=== PATIENT | female | born 1955 | race Caucasian/White ===

== ENCOUNTER 2018-07-19 03:42 | Emergency (ER) | payer OTHER ==
[~2018-07-19] VITALS: Ht 157.5 cm; Wt 72.7 kg
[~2018-07-19 03:42] MED LIST: LISINOPRIL PO; METFORMIN PO
[2018-07-19 04:03] LABS: GLUCOSE,POINT OF CARE 141 MG/DL (70-110)
[2018-07-19] MEDS ORDERED: SIMV-259 PO (04:15)
[2018-07-19] MEDS ORDERED: CefTRIAXone SODIUM 1 GM in DEXTROSE 5%-WATER 10 ML IV ONE (04:30)
[2018-07-19] MEDS ORDERED: SODIUM CHLORIDE 0.9% 1,000 ML IV ONE (04:30)
[2018-07-19 04:37] LABS: BASOPHILS % (AUTO) 0.8 % (0.0-2.0); EOSINOPHILS % (AUTO) 2.3 % (1.0-6.0); HEMATOCRIT 40.1 % (36-46); HEMOGLOBIN 13.8 g/dL (12.0-16.0); LYMPHOCYTES # (AUTO) 3.2 K/uL (1.0-4.8); LYMPHOCYTES % (AUTO) 22.4 % (22.0-44.0); MEAN CORPUSCULAR HEMOGLOBIN 30.2 pg (26.0-34.0); MEAN CORPUSCULAR HGB CONC 34.5 G/dL (31.0-37.0); MEAN CORPUSCULAR VOLUME 88 fL (80-100); MONOCYTES # (AUTO) 1.1 K/uL (0.1-1.0); MONOCYTES % (AUTO) 8.1 % (2.0-9.0); NEUTROPHILS # (AUTO) 9.4 K/uL (1.8-7.7); NEUTROPHILS % (AUTO) 66.4 % (40.0-70.0); PLATELET COUNT (AUTO) 272 K/uL (150-450); RED BLOOD CELL COUNT(AUTO) 4.58 MIL/uL (4.00-5.20); RED CELL DISTRIBUTION WIDTH 13.9 % (11.5-14.5)
[2018-07-19 04:44] LABS: CALCIUM, TOTAL 9.1 mg/dL (8.8-10.5); POTASSIUM 4.2 mmol/L (3.5-5.1)
[2018-07-19] MEDS ORDERED: KETOROLAC TROMETHAMINE 30 MG/ML VIAL IVP ONE (04:45)
[2018-07-19 04:50] LABS: ALBUMIN 3.6 g/dL (3.4-5.0); BILIRUBIN,TOTAL 0.3 mg/dL (0.1-1.0); TOTAL PROTEIN, SERUM 7.7 g/dL (6.4-8.2)
[2018-07-19] MEDS ORDERED: PHENAZOPYRIDINE HCL 100 MG TABLET PO ONE (05:00)
[2018-07-19 05:05] LABS: APPEARANCE,URINE TURBID (CLEAR); BILIRUBIN,URINE NEGATIVE (NEGATIVE); GLUCOSE, URINE (UA) NEGATIVE (NEGATIVE); KETONES,URINE NEGATIVE (NEGATIVE); LEUKOCYTE ESTERASE ,URINE MODERATE (NEGATIVE); NITRATE,URINE NEGATIVE (NEGATIVE); OCCULT BLOOD,URINE LARGE (NEGATIVE); PROTEIN,URINE SEE CONFIRM (NEGATIVE); UROBILINOGEN,URINE 0.2 mg/dL (<=1.0)
[2018-07-19 05:23] LABS: BACTERIA,URINE Rare /HPF (None Seen); RBC,URINE >100 /HPF (0-2); SQUAMOUS EPITHELIAL CELL,UR Rare /LPF (None Seen); WBC,URINE >100 /HPF (0-5)
[2018-07-19 05:24] LABS: SULFOSALICYLIC ACID,URINE 3+ (Negative)
[2018-07-19 05:41] VITALS: BP 140/56
== END 2018-07-19 05:52 | disposition home or self-care (01) ==
LOC: EMS 03:43
DX: N12 Tubulo-interstitial nephritis, not specified as acute or chronic (principal); E11.9 Type 2 diabetes mellitus without complications; E78.00 Pure hypercholesterolemia, unspecified; I10 Essential (primary) hypertension; F17.210 Nicotine dependence, cigarettes, uncomplicated; Z79.899 Other long term (current) drug therapy; Z79.84 Long term (current) use of oral hypoglycemic drugs
CPT/HCPCS: 36415; 80053; 81001; 82962; 85025; 87077; 87086; 87186; 96374; 96375; 99284; 99406; J0696; J1885; J7060; J7030

== ENCOUNTER 2023-03-03 19:10 | Emergency (ER) | payer MEDICARE, OTHER ==
[~2023-03-03] VITALS: Ht 158.8 cm; Wt 69.0 kg
[~2023-03-03 19:10] MED LIST changes: +SIMV-259 PO
[2023-03-03 19:23] VITALS: TEMP 97.7
[2023-03-03 19:34] LABS: BASOPHILS % (AUTO) 0.8 % (0.0-2.0); EOSINOPHILS % (AUTO) 3.6 % (1.0-6.0); HEMATOCRIT 37.1 % (36-46); HEMOGLOBIN 12.2 g/dL (12.0-16.0); LYMPHOCYTES # (AUTO) 4.8 K/uL (1.0-4.8); MEAN CORPUSCULAR HEMOGLOBIN 29.1 pg (26.0-34.0); MEAN CORPUSCULAR HGB CONC 32.9 G/dL (31.0-37.0); MEAN CORPUSCULAR VOLUME 89 fL (80-100); MONOCYTES % (AUTO) 9.3 % (2.0-9.0); NEUTROPHILS # (AUTO) 4.8 K/uL (1.8-7.7); NEUTROPHILS % (AUTO) 43.3 % (40.0-70.0); PLATELET COUNT (AUTO) 327 K/uL (150-450); RED BLOOD CELL COUNT(AUTO) 4.19 MIL/uL (4.00-5.20); RED CELL DISTRIBUTION WIDTH 13.9 % (11.5-14.5)
[2023-03-03] MEDS ORDERED: GEMF-77 PO (19:37)
[2023-03-03] MEDS ORDERED: ATOR40TA28 PO (19:37)
[2023-03-03] MEDS ORDERED: METH1TAB PO (19:37)
[2023-03-03] MEDS ORDERED: HYDR25TA2 PO (19:37)
[2023-03-03] MEDS ORDERED: METO25XL PO (19:37)
[2023-03-03] MEDS ORDERED: GLIP10TA10 PO (19:37)
[2023-03-03] MEDS ORDERED: LOSA-382 PO (19:37)
[2023-03-03] MEDS ORDERED: GABA-1181 PO (19:37)
[2023-03-03] MEDS ORDERED: ESOM20CA31 PO (19:37)
[2023-03-03] MEDS ORDERED: CLOP75TA60 PO (19:37)
[2023-03-03] MEDS ORDERED: [UNRECOGNIZED DRUG - OTHER] PO (19:37)
[2023-03-03 19:43] LABS: CALCIUM, TOTAL 9.5 mg/dL (8.8-10.5); CREATININE 1.11 mg/dL (0.60-1.30); POTASSIUM 4.7 mmol/L (3.5-5.1)
[2023-03-03 19:50] LABS: ALBUMIN 3.4 g/dL (3.4-5.0); BILIRUBIN,TOTAL 0.3 mg/dL (0.1-1.0); TOTAL PROTEIN, SERUM 7.3 g/dL (6.4-8.2)
[2023-03-03 19:51] LABS: GLUCOMETER DEV NAME(LOC) ER.6; GLUCOSE,POINT OF CARE 165 MG/DL (70-110)
[2023-03-03 21:05] LABS: APPEARANCE,URINE HAZY (CLEAR); BILIRUBIN,URINE NEGATIVE (NEGATIVE); GLUCOSE, URINE (UA) NEGATIVE (NEGATIVE); KETONES,URINE NEGATIVE (NEGATIVE); LEUKOCYTE ESTERASE ,URINE LARGE (NEGATIVE); NITRATE,URINE NEGATIVE (NEGATIVE); OCCULT BLOOD,URINE SMALL (NEGATIVE); PH,URINE 6.5 (5.0-8.0); PROTEIN,URINE 30-70 mg/dL (NEGATIVE); UROBILINOGEN,URINE <=1.0 mg/dL (<=1.0)
[2023-03-03 21:13] LABS: BACTERIA,URINE Few /HPF (None Seen); SQUAMOUS EPITHELIAL CELL,UR Few /LPF (None Seen); WBC,URINE 51-100 /HPF (0-5)
[2023-03-03] MEDS ORDERED: KETOROLAC TROMETHAMINE 30 MG/ML VIAL IVP ONE (22:30)
[2023-03-03] MEDS ORDERED: CefTRIAXone 1 GM/DEXTROSE 50 ML IV ONE (22:30)
[2023-03-03] MEDS ORDERED: ONDANSETRON HCL 4 MG/2 ML VIAL IVP ONE (22:30)
[2023-03-03] MEDS ORDERED: ACET-66 PO (23:43)
[2023-03-03] MEDS ORDERED: ONDA-104 PO (23:43)
[2023-03-03] MEDS ORDERED: CEPH-558 PO (23:43)
[2023-03-03] MEDS ORDERED: PHEN-674 PO (23:44)
[2023-03-04] VITALS: BP 160/70; PULSE 64; RESP 18
== END 2023-03-04 00:04 | disposition home or self-care (01) ==
LOC: EMS 19:11
DX: N12 Tubulo-interstitial nephritis, not specified as acute or chronic (principal); J42 Unspecified chronic bronchitis; E11.65 Type 2 diabetes mellitus with hyperglycemia; E78.00 Pure hypercholesterolemia, unspecified; I10 Essential (primary) hypertension; F17.210 Nicotine dependence, cigarettes, uncomplicated
CPT/HCPCS: 99285; 74176; 96365; 96375; 80053; 81001; 82962; 83690; 84484; 85025; 36415; 87086; 87186; J0696; J1885; J2405